=== PATIENT | female | born 1985 | race Caucasian/White ===

== ENCOUNTER 2017-02-22 13:25 | Emergency (ER) | payer SELFPAY ==
[~2017-02-22] VITALS: Ht 154.9 cm; Wt 54.4 kg
[~2017-02-22 13:25] MED LIST: ERYTHROMYCIN 2250 M3 PO; NOMEDS *; PHENERGAN12.5 M3 PO; PRENATAL PO; PYRIDIUM 200MG200 MG PO; SEPTRA DS 800 M1 TAB PO; VICODIN 5/500 T1 TAB PO; VOLTAREN75 MG PO
--- NOTE | 2017-02-22 14:02 | Urgent Treatment Center Report ---
History of Present Issue Date/Time Seen by Provider 02/22/17 1401 Visit Reason Pt arrived:Walked Presenting Problem:PT SMASHED HER LEFT HAND IN A CAR DOOR Location if Accident: Onset of symptoms date/time:/ or onset unknown for:MEDICAL HX UNKNOWN Have you (or family members/close friends) recently traveled outside the [place]? N If Yes, where/when: Have you had exposure to infectious disease within the past month? TB? Other? Specify: c/o left wrist pain after daughter closed hand in door approx 1-2 hours ago. Pain worse w/ ROM wrist and thumb. Denies N/T. No treatment prior to arrival Pain 01/24. Source patient Exam Limitations clinical condition (pain) ALLERGIES Coded Allergies: pseudoephedrine (From Sudafed) (Intermediate, I-HIVES 06/02/15) Penicillins (THROAT SWELLS 06/02/15) Home Medications Reported Medications PNV NO.118/IRON FUMARATE/FA ( 19 Chewable Tablet) 1 CTB PO DAILY #30 History Medical History General CAD? No Angina: No SD: No Hypertension? No Hyperlipidemia? No CHF? No DVT? No PE? No COPD? No Asthma? No Anemia? No GERD? No Gastric ulcers? No GI Bleed? No Hernia? Yes Thyroid Problems? No Hypothyroidism? No CVA? No Seizures? No Diabetes? No Renal Insuffiency? No UTI? No Stones? No GB Disease: No Nephritic Syndrome? No Asplenia? No Hepatitis? No Sickle Cell Disease? No Arthritis? No Migraines? No Cataracts? No Glaucoma? No MRSA? No HIV? No TB? No Anxiety? No Depression? No Cancer? No More? No Immunization HX DT/Tetanus > 10 Years Ago Flu 2014-FSN Pneumonia Never Had Surgical Hx Previous Surgery?Y CLEFT LIP PLATE X19 X4 EAR DRUM RECONSTRUCTION R UMBILICAL HERNIA INFAN HYSTERECTOMY Social History Smoking Hx Smoker: Current Every Day Smoker Tobacco: Yes Type Cigarettes Packs/day < 1 Pack Alcohol Alcohol: No Review of Systems All Other Systems Reviewed and Negative Constitutional denies weakness Musculoskeletal see HPI Skin denies change in color, denies lesions Psychiatric/Neurological see HPI Physical Exam Vital Signs Vital Signs Date Time Temp Pulse Resp B/P Pulse O2 O2 Flow FiO2 Ox Delivery Rate 02/22 1434 98.0 85 20 117/68 98 02/22 1412 20 02/22 1340 98.0 85 16 117/68 98 / 1333 98.0 85 16 117/68 98 General Appearance moderate distress (guarding left hand) Respiratory Status No: respiratory distress. Cardiovascular no peripheral edema Peripheral Pulses Pulses normal Yes (radial) Extremities normal inspection (left hand, wrist, FA), tenderness generalized throughout left wrist, left thumb, left 2nd and 3rd metacarpal, limited ROM left wrist and left thumb only "hurts too much to try" pt reported Neurologic alert, no motor/sensory deficits Skin intact, normal color, warm/dry Medical Decision Making LABS/Meds/Orders Pt receiving controlled substance in ED? No Results/Orders Current Medication Orders Sig/Jaron Start time Last Medication Dose Route Stop Time Status Admin Ketorolac 60 MG ONCE ONE 02/22 1415 DC 02/22 Tromethamine IM 02/23 1416 141 Ketorolac 0 .STK-MED ONE 02/22 1410 DC Tromethamine .ROUTE Orders Procedure Date/time Status STABILIZE JOINT 02/22 1426 Active XRAY/CT/US XRAY/CT/US XRAY hand (left), wrist (left) XR interpretation by reviewed by me, discussed w/radiologist (read report) Xray Results no acute findings Departure Departure Time of Disposition 1428 Disposition DC Home or Self Care(routine) Clinical Impression Primary Impression: Crushing injury of left wrist and hand, initial encounter Condition STABLE Referrals Jed Vila MD IMMEDIATELY for new or worsening symptoms OR no noticeable improvement over the next 3-5 days Patient Instructions DI for Hand Pain, DI for Wrist Sprain, How To Perform RICE (Rest, Ice, Compress, Elevate) Additional Instructions * use left wrist and hand as tolerated. Althrough wrist immobilized, try to wiggle all 5 fingers frequently. * Rest * ice 15-20 mins 3-4 times a day * wrist splint for support and swelling unless in shower. Be sure not too tight but not too loose either * Elevate as discussed as much as possible to help reduce swelling and therefore , pain * Ibuprofen every 6 hours as needed for pain and inflammation. If you need something more, you can take tylenol every 4 hours as needed as long as your primary care provider has told you it is ok to take both. * Seek immediate medical attention for new or worsening symptoms including but not limited to worsening pain, swelling, loss of feeling/numbness, change of color. * If no improvement by Saturday, call Dr. Maldonado's office for follow up appointment Discharge Counseling Counseled pt/family regarding diagnosis, test results, medications/RX, home care, follow up needs at 1933
--- NOTE | 2017-02-22 14:23 | RADIOLOGY REPORT PS360 ---
HAND-LT-3 VIEWS HISTORY: Injury with pain CAUGHT IN CAR DOOR ORDERING PHYSICIAN: GERALD PERALTA APRN PATIENT AGE: 31 years COMPARISON: None FINDINGS: No fracture or dislocation. No lytic or blastic change. There is normal mineralization. The joint spaces are well-preserved. No significant degenerative/arthritic changes. No erosive changes evident. IMPRESSION: Negative, no acute finding
[2017-02-22 14:34] VITALS: BP 117/68
== END 2017-02-22 14:40 | disposition home or self-care (01) ==
LOC: ER 13:25 → UTC 13:36 → ER 13:36 → UTC 14:40
DX: S67.42XA Crushing injury of left wrist and hand, initial encounter (principal); W23.1XXA Caught, crushed, jammed, or pinched between stationary objects, initial encounter; Y92.89 Other specified places as the place of occurrence of the external cause; F17.210 Nicotine dependence, cigarettes, uncomplicated; Z79.899 Other long term (current) drug therapy; Z88.0 Allergy status to penicillin; Z88.8 Allergy status to other drugs, medicaments and biological substances